=== PATIENT | male | born 1955 | race Caucasian/White ===

== ENCOUNTER 2020-11-05 15:23 | Emergency (ER) | payer OTHER, BC, SELFPAY ==
--- NOTE | ~2020-11-05 | US_ITS ---
EXAMINATION: US RIGHT GROIN, LIMITED/FOLLOW UP CLINICAL INFORMATION: Pain after lifting with lesion of right groin hernia COMPARISON: None TECHNIQUE: Linear transducer was used for evaluation of the right inguinal region. FINDINGS: Appearances are normal. No hernia is seen. No abnormal fluid collections or masses are seen. The common femoral artery and common femoral vein appear unremarkable. US/US pelvic limited IMPRESSION: No evidence of a right groin hernia
--- NOTE | ~2020-11-05 | US_ITS ---
EXAMINATION: US SCROTUM CLINICAL INFORMATION: Right scrotal pain after lifting. COMPARISON: None TECHNIQUE: A sonogram of the scrotum was performed assessing veronica-scale appearance and color Doppler flow. Spectral Doppler analysis of the arterial and venous flow were performed in the testes bilaterally. FINDINGS: RIGHT: Right testicle measures 3.6 x 2.1 x 2.9 cm, volume 11.5 mL. No focal testicular parenchymal lesions are visualized. Spectral Doppler analysis of the arterial and venous flow is normal in the right testis. Right epididymal head is normal in size. 2 small 2 to 3 mm-sized epididymal cysts are present. No varicocele is seen. A small right hydrocele is seen. Right epididymal Doppler flow is normal. LEFT: Left testicle measures 3.9 x 2.2 x 2.8 cm, volume 12.1 mL. No focal testicular parenchymal lesions are visualized. Spectral Doppler analysis of the arterial and venous flow is normal in the left testis. Left epididymal head is normal in size. A small left varicocele is seen. A small left hydrocele is present. Left epididymal Doppler flow is normal. US/US scrotum doppler IMPRESSION: No evidence of testicular torsion. Incidental findings as described.
[2020-11-05 17:26] VITALS: BP 145/91; PULSE 54; RESP 16; TEMP 36.9; O2SAT 100; BMI 26.4
--- NOTE | 2020-11-05 17:44 | ED_ITS ---
HPI - Male Genitourinary General Chief complaint: Urogenital-Male Stated complaint: groin pain - injury Time Seen by Provider: 11/05/20 17:32 Source: patient Mode of arrival: ambulatory History of Present Illness HPI Narrative: 64-year-old male with a past medical history of gout, hyperlipidemia, ED, presenting to the ED complaining groin pain greater on the right side radiating to right testicle s/p lifting 120lb of heavy boxes at work around 11:00 a.m. Denies urinary incontinence/retention, hesitancy, hematuria, flank pain, new or worsening back pain, radiation of pain down legs, numbness/tingling, direct trauma, testicular swelling/erythema/discoloration MD Complaint: testicle pain Related Data Previous Rx's Medication Instructions Recorded amoxicillin 500 mg-potassium 1 tab PO BID #14 tab 07/12/20 clavulanate 125 mg tablet (Augmentin) sildenafil 50 mg tablet (Viagra) 50 mg PO DAILY PRN #10 tab 07/12/20 acetaminophen 500 mg tablet 500 mg PO Q6H PRN #20 tab 11/05/20 (Tylenol Extra Strength) cyclobenzaprine 5 mg tablet 5 mg PO Q8H PRN 5 Days #14 tab 11/05/20 naproxen 500 mg tablet 500 mg PO BID PRN 10 Days #20 tab 11/05/20 Allergies Allergy/AdvReac Type Severity Reaction Status Date / Time No Known Allergies Allergy Mild NONE Unverified 12/15/19 16:09 Review of Systems Review of Systems: Constitutional: No Fever, No Chills Cardiovascular: No Chest Pain, No SOB Respiratory: No Cough, No Sputum, No Wheezing Gastrointestinal: No Nausea, No Vomiting, No Abdominal pain Genitourinary: + right testicular pain, +groin pain No Dysuria, No Urinary Frequency, No Hematuria, No Urinary Incontinence, No Urgency, No Flank Pain Musculoskeletal: + chronic back pain, No Myalgias, No Joint Swelling Skin: No Skin Lesions, No rash Neuro: No Weakness, No Numbness, No Paresthesias Yes all other systems are reviewed and are negative [facility] Past Medical History Attestation statement: The following information was validated with the patient. Medical History (Updated 11/05/20 @ 19:23 by MURPHY Bo) Erectile dysfunction Gout Hypercholesterolemia Surgical History (Updated 07/12/20 @ 14:29 by Tani Menchaca MD) Low back pain Family History Family History (Updated 07/12/20 @ 14:31 by Tani Menchaca MD) Mother No problems noted. Father Cancer Gastric cancer Sister No problems noted. Brother No problems noted. Paternal Grandfather Myocardial infarct Social History Social History (Updated 07/12/20 @ 14:32 by Tani Menchaca MD) Alcohol intake: never Years Smoked: 2004 Advance Directives: No Advance Directives Information Provided: No Physical Exam Vital Signs: Vital Signs: Last Vital Signs Temp 98.4 F 11/05/20 17:26 Pulse 54 11/05/20 17:26 Resp 16 11/05/20 17:26 BP 145/91 H 11/05/20 17:26 Pulse Ox 100 11/05/20 17:26 Body Mass Index 26.4 Const: General: cooperative and healthy appearing Orientation/consciousness: patient oriented x3 Limitations: no limitations HENMT: Head: Yes normal to inspection Ears: hearing grossly normal bilaterally General nose exam: Normal external nose present Face and sinus: Yes normal facial exam Eyes: General: appearance normal, both eyes and all related structures EOM: EOMs intact bilaterally Neck: Neck: Yes normal visual inspection Resp: Effort & Inspection: normal respiratory effort and no respiratory distress Cardio: Rate: regular rate GI: Inspection: Yes normal to inspection Palpation (GI): Soft to palpation, Tenderness to palpation present (GI) (Right suprapubic region/right groin), no guarding and not rigid : Penis: normal penis and uncircumcised Scrotum: no inguinal hernias and no scrotal swelling Testes: no testicular mass, no testicular swelling and testicular tenderness on the right Back/Spine/Pelvis: Other: No midline thoracic/lumbar spinous/step-offs Skin: Rashes: no rashes Wounds: no wounds Neuro: General: patient oriented x3 Gait exam (Neuro): Normal gait present Extrem: General: Yes normal to inspection Course Course Course Narrative: -UA negative -US pelvic limited IMPRESSION: No evidence of a right groin hernia? US scrotum doppler IMPRESSION: No evidence of testicular torsion. Incidental findings as described. >> results discussed with patient including worrisome signs and symptoms and strict return precautions, he verbalized understanding & feels safe for discharge home to follow-up with PCP MDM - Male Genitourinary MDM Narrative Medical decision making narrative: 64-year-old male with a past medical history of gout, hyperlipidemia, ED, presenting to the ED complaining groin pain greater on the right side radiating to right testicle s/p lifting 120lb of heavy boxes at work around 11:00 a.m. on exam vital signs stable, NAD, physical exam as above, right groin/suprapubic tenderness elicited on exam with right testicular tenderness. Concern for hernia vs torsion vs MSK pain/strain. Plan: Ultrasound Medical Records Attestation: I reviewed the patient's medical records. Lab Data Attestation: I reviewed the patient's lab results. Labs: Lab Results 11/05/20 Range/Units 17:33 Urine Color YELLOW Urine Appearance CLEAR Urine pH 7.5 (5.0-8.0) Ur Specific [place] 1.010 (1.005-1.025) Urine Protein NEG (NEG-TRACE) MG/DL Urine Glucose (UA) NEG (NEG) MG/DL Urine Ketones NEG (NEG) MG/DL Urine Blood NEG (NEG) Urine Nitrite NEG (NEG) Ur Leukocyte Esterase NEG (NEG) Discharge Plan Discharge Clinical Impression: Right groin pain Patient Disposition: Home, Self-Care Instructions: Groin Pain (ED) Additional Instructions: Your ultrasound did not show any evidence of a hernia It is important for you to follow-up with her doctor Your pain is likely musculoskeletal Flexeril is a muscle relaxer, take at night as it makes you drowsy, do not drive, drink alcohol, or operate machinery while taking it Naproxen as an anti-inflammatory / pain medication, take with food In addition take Tylenol at home If symptoms persist or worsen, you develop swelling or discoloration your testicle, difficulty your inability to urinate, back pain, pain becomes unbearable, you developed urinary retention or incontinence, or weakness return to the ED Prescriptions: New acetaminophen [Tylenol Extra Strength] 500 mg tablet 500 mg PO Q6H PRN (Reason: pain or fever) Qty: 20 RF: 0 naproxen 500 mg tablet 500 mg PO BID PRN (Reason: pain) 10 Days Qty: 20 RF: 0 cyclobenzaprine 5 mg tablet 5 mg PO Q8H PRN (Reason: pain (scale score 7-10)) 5 Days Qty: 14 RF: 0 No Action sildenafil [Viagra] 50 mg tablet 50 mg PO DAILY PRN (Reason: sexual activity) Qty: 10 RF: 3 amoxicillin-pot clavulanate [Augmentin] 500-125 mg tablet 1 tab PO BID Qty: 14 RF: 0 Referrals: Po,Tani Ruiz MD [Primary Care Provider] - 2 days Interventions: ED Discharge Assessment Last Done: 11/05/20 19:27 Discharge Date/Time: 11/05/20 19:28
[2020-11-05 18:06] LABS: Glucose Urine UA NEG (NEG); Leukocyte Esterase Urine NEG (NEG); Nitrite Urine NEG (NEG); PH 7.5 (5.0-8.0); Urine Blood NEG (NEG); Urine Ketones NEG (NEG); Urine Protein NEG (NEG-TRACE)
[2020-11-05 18:12] LABS: Appearance Urine CLEAR; Color Urine YELLOW
== END 2020-11-05 19:28 | disposition home or self-care (01) ==
PROVIDERS: Physician Assistant; Emergency Provider Emergency Medicine Emergency Medical Services; PCP Internal Medicine
DX: N50.812 Left testicular pain (principal); R10.31 Right lower quadrant pain; N50.811 Right testicular pain; Z79.899 Other long term (current) drug therapy
CPT/HCPCS: 76857; 81003; 93975; 99282; 99284

== ENCOUNTER → 2020-12-12 10:27 | Outpatient (BNVA) | payer OTHER, SELFPAY | PROVIDERS: PCP Internal Medicine; Referring Provider Internal Medicine; Visit Provider Surgery ==

== ENCOUNTER 2021-01-01 08:04 | Day surgery (SDC) | payer OTHER, SELFPAY ==
[2020-12-26 14:14] VITALS: BMI 27.6
--- NOTE | 2020-12-31 09:38 | HO.ANESPROP2 ---
Documented by User: Radha Ng NP 12/31/20 09:38 HPI - Anesthesia Eval Consult details Narrative: 65yo M for Right Hernia Repair Inguinal with Mesh PMFSH Active Problems Active Problems: All Active Problems (Updated 12/26/20 @ 13:10 by Sheela Hardwick RN) Colon cancer screening (Acute) Impaired glucose tolerance (Acute) Laceration of hand (Acute) Blood pressure elevated without history of HTN (Acute) Inguinal hernia of right side without obstruction or gangrene (Acute) Erectile dysfunction (Acute) Hypercholesterolemia (Acute) Past Medical History Medical History COVID-19 vaccine series completed Erectile dysfunction Gout Hypercholesterolemia Family History Family History Mother No problems noted. Father Cancer Gastric cancer Sister No problems noted. Brother No problems noted. Paternal Grandfather Myocardial infarct Surgical History Surgical History H/O colonoscopy Low back pain Social History Social History Housing: House Alcohol intake: never Patient Tobacco Use Status: Former Tobacco user Quit Date: 2004 Tobacco use type: Cigarette Years Smoked: 2004 Advance Directives Information Provided: No (as above noted) Advance Directives on File: No Current occupational status: employed Meds Allergies Allergy/AdvReac Type Severity Reaction Status Date / Time No Known Allergies Allergy Mild NONE Verified 01/01/21 08:29 Exam Exam Date and Time: December 31, 2020 0938 Height,Weight and Vital Signs: Height 6 ft 1 in Weight 94.801 kg Assessment and Plan Assessment Anesthesia Assessment: Chart Reviewed Documented by User: Kristine Rocha MD 01/01/21 09:56 PMFSH Past Medical History Medical History COVID-19 vaccine series completed Erectile dysfunction Gout Hypercholesterolemia Family History Family History Mother No problems noted. Father Cancer Gastric cancer Sister No problems noted. Brother No problems noted. Paternal Grandfather Myocardial infarct Family history of problems with anesthesia: No Surgical History Surgical History H/O colonoscopy Low back pain History of Problems with Anesthesia: No Social History Social History Housing: House Alcohol intake: never Patient Tobacco Use Status: Former Tobacco user Quit Date: 2004 Tobacco use type: Cigarette Years Smoked: 2004 Advance Directives Information Provided: No (as above noted) Advance Directives on File: No Current occupational status: employed Meds Allergies Allergy/AdvReac Type Severity Reaction Status Date / Time No Known Allergies Allergy Mild NONE Verified 01/01/21 08:29 Exam Height,Weight and Vital Signs: Height 6 ft 1 in Weight 94.801 kg Vital Signs Temp Pulse Resp BP Pulse Ox 01/01/21 08:27 97.8 F 64 16 118/80 97 Airway Mallampati Class: II TM Dist: >3cm Neck ROM: Full Loose/Missing/Broken Teeth: No Heart: RRR Lungs: CTAB Assessment and Plan Final Anesthetic Review Family History of Problems with Anesthesia: No History of Problems with Anesthesia: No NPO: Yes ASA Class: II Final Preanesthetic Review: No Changes in Pt Med Stat, Meds/Allgs Chart Reviewed, Consent Obtained/Reviewed and Anes Risks/Benef Reviewed Patient Risk: Low Procedure Risk: Low Assessment/Block/Sedation in SS: Assess/Block/Sedation-SS Anesthetic Plan Anesthetic Plan: GA Disposition: Standard PACU
[2021-01-01] VITALS (11 sets, daily range): BP systolic 118–143; BP diastolic 80–95; PULSE 60–72; RESP 14–16; TEMP 36.2–36.6; O2SAT 95–98
[2021-01-01] MEDS: Lactated Ringers 1,000 ML 100 ML IVCONT (08:46)
--- NOTE | 2021-01-01 09:40 | MHC.SHP ---
Pre-Procedural Eval Section A Date of Service: 01/01/21 Section B Chief Complaint: Inguinal hernia of right side without obstruction Allergies: Allergies Allergy/AdvReac Type Severity Reaction Status Date / Time No Known Allergies Allergy Mild NONE Verified 01/01/21 08:29 Plan I have reviewed the history and physical and performed a pertinent physical examination on my patient. No changes have occurred unless specified.
--- NOTE | 2021-01-01 11:05 | P.OP_ITS ---
Operative Note Operative Note Date of Service: 01/01/21 Narrative: Preop diagnosis: Right inguinal hernia Postop diagnosis: Right inguinal hernia, indirect Procedure: Repair of right inguinal hernia with mesh Surgeon: Joe Chavira MD 1st assistant financial accountant: MURPHY Harrison The patient this is 5-year-old male with note of reducible mass on the right groin consistent with a right inguinal hernia. He wanted to proceed with repair. He understood the technique of repair with mesh. He is aware of the risks, benefits, and alternatives. He was brought to the operating room and placed supine on the table under general anesthesia via laryngeal mask airway. The right groin was prepped and draped in the usual sterile fashion. A surgical time-out was done. The patient received cefazolin 2 g IV preoperatively. I infiltrated the planned line of incision with lidocaine 1%. I made the short incision using blade 15. This was carried down through the full-thickness of the skin and subcutaneous fat to the fascia. The external oblique aponeurosis was then exposed with blunt dissection. By doing so was able to visualize the external ring. I made incision on the external oblique aponeurosis using blade 15. And this was extended inferomedially to connect with the external ring. I applied hemostats to the edges of the external oblique aponeurosis. I bluntly dissected the underside of the aponeurosis to create a pocket for mesh. I then proceeded to bluntly dissect the spermatic cord and its contents using my index finger until was able to pass a Vickie drain for retraction. I proceeded to identify the vas deferens and its accompanying vessels. I examined the rest of the spermatic cord and I was able to identify a sac at the anterior medial aspect. I bluntly dissected the sac off of the rest of the cord contents down to the level of the internal ring until was able to completely reduce this. I reinforced the internal ring with the small-sized Prolene plug. The plug was secured with Prolene 2 sutures to the shelving edge of the inguinal and laterally, the internal oblique superiorly and medially to the inner leaves of the plug. I then reinforced the floor of the canal with a keyhole mesh. The tails of the mesh were passed around the cord at the level of the internal ring and were secured together with Prolene 2 sutures. I secured the mesh to the shelving edge of the inguinal ligament laterally and the internal oblique superiorly medially as well as the pubic ramus inferomedially using Prolene 2 sutures as well. I irrigated and suctioned out the irrigant fluid. I observed for hemostasis. Once hemostasis was ensured, I proceeded to close the external oblique aponeurosis with arunning Dexon 2-0 stitch to re-create the external ring. I reapposed the subcutaneous layer with Dexon 3-0 interrupted sutures. Skin closure was achieved with Dexon 4-0 subcuticular running stitch. I infiltrated the area with Marcaine 0.5% for postop analgesia. Steri-Strips and dressings were applied. The procedure was then completed. The patient tolerated procedure well. There were no complication noted. Initial and final counts of sponges and instruments were correct. Estimated blood loss was about for cc. The patient wasextubated without difficulty and transferred to the recovery room with stable vital signs.
--- NOTE | 2021-01-01 11:11 | PM.OP ---
Brief Operative Note Date of Service: 01/01/21 Pre-op diagnosis: Right inguinal hernia Post-op diagnosis: same Procedure: Repair of right inguinal hernia with mesh Implants: Mesh Surgeon: Joe Chavira MD Anesthesia: GLMA Was an Cutter Woodwind Reeds used for this Procedure?: Yes Cutter Woodwind Reeds: Karin Harrison Estimated blood loss (mL): 4 Pathology: none sent Condition: stable Disposition: PACU
[2021-01-01] MEDS: Acetaminophen 325 MG TABLET 650 MG PO (11:36)
[2021-01-01] MEDS: Ketorolac Tromethamine 15 MG/ML VIAL IVPUSH (11:36)
[2021-01-01] MEDS: oxyCODONE HCl Immed Release 5 MG TABLET PO (11:36)
[2021-01-01] MEDS: fentaNYL citrate/PF 100 MCG/2 ML VIAL 25 MCG IVPUSH ×2 (11:37→11:42)
== END 2021-01-01 13:34 | disposition home or self-care (01) ==
PROVIDERS: PCP Internal Medicine; Visit Provider Surgery
PROC: (CPT 49505; principal; 2021-01-01 09:50)
DX: K40.90 Unilateral inguinal hernia, without obstruction or gangrene, not specified as recurrent (principal)
CPT/HCPCS: 49505; C1781; J0690; J1100; J1885; J2250; J2405; J3010

== ENCOUNTER → 2021-01-14 13:34 | Outpatient (BNVA) | payer OTHER, SELFPAY | PROVIDERS: PCP Internal Medicine; Visit Provider Surgery | DX: Z48.815 Encounter for surgical aftercare following surgery on the digestive system (principal); Z87.19 Personal history of other diseases of the digestive system | CPT/HCPCS: 99212 ==

== ENCOUNTER 2021-08-14 08:50 | Day surgery (SDC) | payer BC, SELFPAY ==
[2021-08-09 13:28] VITALS: BMI 28.3
--- NOTE | 2021-08-13 10:28 | HO.ANESPROP2 ---
Documented by User: Radha Ng NP 08/13/21 10:29 HPI - Anesthesia Eval Consult details Narrative: 65yo M for Colonoscopy PMFSH Active Problems Active Problems: All Active Problems (Updated 08/09/21 @ 13:27 by Tiffanie Kimball, MARIA ELENA) Colon cancer screening (Acute) Impaired glucose tolerance (Acute) Laceration of hand (Acute) Blood pressure elevated without history of HTN (Acute) Inguinal hernia of right side without obstruction or gangrene (Acute) Annual physical exam (Acute) History of inguinal hernia repair (Acute) Erectile dysfunction (Acute) Hypercholesterolemia (Acute) Past Medical History Medical History Arthritis COVID-19 vaccine series completed Erectile dysfunction Gout Hypercholesterolemia Family History Family History Mother No problems noted. Father Cancer Gastric cancer Sister No problems noted. Brother No problems noted. Paternal Grandfather Myocardial infarct Family history of problems with anesthesia: No Surgical History Surgical History (Updated 08/14/21 @ 10:24 by Kristine Rocha MD) Amputation finger H/O colonoscopy History of right inguinal hernia repair Low back pain History of Problems with Anesthesia: No Social History Social History Housing: House Alcohol intake: never Patient Tobacco Use Status: Former Tobacco user Quit Date: 13 years ago Tobacco use type: Cigarette Years Smoked: 2004 e-Cigarette/Vaping Use: Never Used Second Hand Smoke Exposure: No Are you DNR?: No Advance Directives: No Advance Directives Information Provided: Yes Current occupational status: employed Meds Allergies Allergy/AdvReac Type Severity Reaction Status Date / Time No Known Allergies Allergy Mild NONE Verified 08/09/21 13:27 Exam Exam Date and Time: August 13, 2021 1028 Height,Weight and Vital Signs: Height 6 ft 2 in Weight 100.244 kg Assessment and Plan Assessment Anesthesia Assessment: Chart Reviewed Final Anesthetic Review Family History of Problems with Anesthesia: No History of Problems with Anesthesia: No Documented by User: Kristine Rocha MD 08/14/21 10:28 [facility] Active Problems Active Problems: All Active Problems (Updated 08/09/21 @ 13:27 by Tiffanie Kimball, RN) Colon cancer screening (Acute) Impaired glucose tolerance (Acute) Laceration of hand (Acute) Blood pressure elevated without history of HTN (Acute) History of inguinal hernia repair (Acute) Erectile dysfunction. No sildenafil recently Hypercholesterolemia (Acute) Past Medical History Medical History Arthritis COVID-19 vaccine series completed Erectile dysfunction Gout Hypercholesterolemia Family History Family History Mother No problems noted. Father Cancer Gastric cancer Sister No problems noted. Brother No problems noted. Paternal Grandfather Myocardial infarct Surgical History Surgical History (Updated 08/14/21 @ 10:24 by Kristine Rocha MD) Amputation finger H/O colonoscopy History of right inguinal hernia repair Low back pain Social History Social History Housing: House Alcohol intake: never Patient Tobacco Use Status: Former Tobacco user Quit Date: 13 years ago Tobacco use type: Cigarette Years Smoked: 2004 e-Cigarette/Vaping Use: Never Used Second Hand Smoke Exposure: No Are you DNR?: No Advance Directives: No Advance Directives Information Provided: Yes Current occupational status: employed Meds Allergies Allergy/AdvReac Type Severity Reaction Status Date / Time No Known Allergies Allergy Mild NONE Verified 08/09/21 13:27 Exam Height,Weight and Vital Signs: Height 6 ft 2 in Weight 100.244 kg Vital Signs Temp Pulse Resp BP Pulse Ox 08/14/21 09:24 97.1 F 55 16 126/80 99 Airway Mallampati Class: II TM Dist: >3cm Neck ROM: Full Heart: RRR Lungs: CTAB Assessment and Plan Final Anesthetic Review NPO: Yes ASA Class: II Final Preanesthetic Review: No Changes in Pt Med Stat, Meds/Allgs Chart Reviewed, Consent Obtained/Reviewed and Anes Risks/Benef Reviewed Patient Risk: Low Procedure Risk: Low Assessment/Block/Sedation in SS: Assess/Block/Sedation-SS Anesthetic Plan Anesthetic Plan: MAC: Disposition: Standard PACU
[2021-08-14 09:24] VITALS: BP 126/80; PULSE 55; RESP 16; TEMP 36.2; O2SAT 99; BMI 26.9
[2021-08-14] MEDS: Lactated Ringers 1,000 ML 100 ML IVCONT (09:30)
--- NOTE | 2021-08-14 11:17 | P.BOP_ITS ---
Brief Operative Note Date of Service: 08/14/21 Pre-op diagnosis: Screening Post-op diagnosis: other (Colon polyp) Procedure: Colonoscopy to the cecum and TI with cold snare polypectomy x 1 Surgeon: Jose Duggan Anesthesia: MAC Was an Customer Acquisition Manager used for this Procedure?: No Estimated blood loss (mL): 2.0 Pathology: other (A. Polyp at 30cm) Condition: stable Disposition: PACU
[2021-08-14 11:19] VITALS: BP 128/88; PULSE 69; RESP 16; TEMP 36.1; O2SAT 97
[2021-08-14 11:34] VITALS: BP 130/86; PULSE 54; RESP 16; TEMP 36.3; O2SAT 98
--- NOTE | 2021-08-14 22:39 | OP_ITS ---
SURGEON: Jose Duggan MD INDICATIONS: The patient presents for evaluation of colorectal cancer screening. Full consent was obtained from him for this, including risks of bleeding and perforation. PREOPERATIVE DIAGNOSIS: Colorectal cancer screening. POSTOPERATIVE DIAGNOSIS: PROCEDURE PERFORMED: Colonoscopy to the cecum and terminal ileum with cold snare polypectomy. ESTIMATED BLOOD LOSS: COMPLICATIONS: ANESTHESIA: ASSISTANTS: SPECIMENS: PREOPERATIVE DIAGNOSIS: Monitored anesthesia care. DESCRIPTION OF PROCEDURE: The patient was placed in the left lateral decubitus position. The digital rectal exam revealed no abnormalities. The Olympus video pediatric colonoscope was entered into the rectum and advanced easily to the cecum. Once in the cecum, I did identify normal-appearing cecal pouch with appendiceal orifice, a normal-appearing ileocecal valve. The terminal ileum was cannulated and appeared normal. Scope was withdrawn back in the colon. The entire cecum and ileocecal valve appeared normal. The scope was slowly withdrawn assessing all mucosal surfaces carefully. Preparation was excellent. At 30 cm was an approximately 5 or 6 mm polyp, which was removed by cold snare polypectomy. This was recovered by suction. The polypectomy site appeared clean, without any sign of residual polyp nor any significant bleeding. I did not visualize any other polyps, colitis, nor angiodysplasia. There was a mild amount of sigmoid diverticulosis. In the rectum, scope was retroflexed visualizing internal hemorrhoids, but no other pathology. The rectal mucosa appeared normal. The scope was straightened and withdrawn from the patient. He tolerated the procedure well and was returned to the recovery area in stable condition. IMPRESSION: 1. Colon polyp, status post cold snare polypectomy. 2. Diverticulosis. 3. Internal hemorrhoids. PLAN: The results of the pathology will be checked. If this is a tubular adenoma, I would recommend a followup colonoscopy in 5 years. If it is only hyperplastic, I would recommend a followup colonoscopy in 10 years. He will otherwise see me on a p.r.n. basis. He was advised not to use any aspirin and NSAIDs for 1 week. POSTOPERATIVE DIAGNOSES: Colorectal cancer screening, colon polyp, diverticulosis and internal hemorrhoids. MD MARCIE Shearer/BHAVANI / [id number]
== END 2021-08-14 12:30 | disposition home or self-care (01) ==
PROVIDERS: PCP Internal Medicine; Visit Provider Internal Medicine
PROC: 0DJD8ZZ Inspection of Lower Intestinal Tract, Via Natural or Artificial Opening Endoscopic (ICD-10-PCS; CPT 45378; principal; 2021-08-14 09:30)
DX: Z12.11 Encounter for screening for malignant neoplasm of colon (principal); D12.5 Benign neoplasm of sigmoid colon; K57.30 Diverticulosis of large intestine without perforation or abscess without bleeding; K64.8 Other hemorrhoids
CPT/HCPCS: 45385; 88305

== ENCOUNTER 2022-12-30 10:11 | Outpatient (AMB) | payer OTHER, BC, SELFPAY ==
[2022-12-30 10:16] VITALS: BP 126/78; PULSE 67; O2SAT 98; BMI 27.0
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
== END 2022-12-30 10:58 | disposition home or self-care (01) ==
PROVIDERS: PCP Internal Medicine; Visit Provider Nurse Practitioner Family
DX: M54.50 Low back pain, unspecified (principal); S16.1XXA Strain of muscle, fascia and tendon at neck level, initial encounter; R51.9 Headache, unspecified
CPT/HCPCS: 99214

== ENCOUNTER 2023-01-22 15:20 | Outpatient (REF) | payer BC, OTHER, SELFPAY ==
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
== END 2023-01-22 15:21 | disposition home or self-care (01) ==
LOC: HO.XRAY 15:20
PROVIDERS: PCP Internal Medicine; Visit Provider Nurse Practitioner Family
DX: S16.1XXA Strain of muscle, fascia and tendon at neck level, initial encounter (principal); M54.50 Low back pain, unspecified
CPT/HCPCS: 72040; 72100

== ENCOUNTER 2023-02-03 08:47 | Outpatient (AMB) | payer BC, SELFPAY ==
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
[2023-02-03 08:55] VITALS: BP 154/82; PULSE 80; O2SAT 98; BMI 27.2
== END 2023-02-03 09:48 | disposition home or self-care (01) ==
PROVIDERS: Visit Provider Internal Medicine
DX: Z00.00 Encounter for general adult medical examination without abnormal findings (principal); I70.0 Atherosclerosis of aorta; R73.02 Impaired glucose tolerance (oral); R03.0 Elevated blood-pressure reading, without diagnosis of hypertension; E78.00 Pure hypercholesterolemia, unspecified; Z23 Encounter for immunization
CPT/HCPCS: 90471; 90677; 99397

== ENCOUNTER 2023-03-03 06:39 | Outpatient (REF) | payer BC, SELFPAY ==
[2023-03-03 06:50] LABS: MANUAL DIFF FLAG NO
[2023-03-03 07:29] LABS: Basophils Absolute Auto 0.1 X10*3/uL (0.0-0.2); Eosinophils Absolute Auto 0.2 X10*3/uL (0.0-0.4); Eosinophils Percent Auto 3.5 % (0-4); Hematocrit 48.8 % (42.0-52.0); Hemoglobin 16.2 g/dl (14.0-18.0); Imm Gran Abs Auto 0.02 X10*3/uL (0.00-0.03); Imm Gran Pct Auto 0.3 % (0.0-0.4); Lymphocytes Absolute Auto 2.3 X10*3/uL (1.2-4.9); Lymphocytes Percent Auto 37.3 % (20-40); Mean Corpuscular HGB Conc 33.2 g/dl (31.0-36.0); Mean Corpuscular Hemoglobin 31.8 pg (27.0-33.0); Mean Corpuscular Volume 95.7 fL (80.0-98.0); Mean Platelet Volume 9.9 fL (9.4-12.4); Monocytes Absolute Auto 0.5 X10*3/uL (0.1-1.2); Monocytes Percent Auto 7.6 % (2-11); Neutrophils Absolute Auto 3.1 x10*3/uL (2.0-8.3); Neutrophils Percent Auto 50.3 % (45-73); Platelet Count 272 X10*3/uL (160-400); Red Cell Distribution Width 12.7 % (11.0-16.0); White Blood Count 6.2 X10*3/uL (4.8-10.8)
[2023-03-03 07:41] LABS: Estimated Average Glucose 114 mg/dL; Hemoglobin A1c % 5.6 % (<6.0)
[2023-03-03 07:53] LABS: Alanine Aminotransferase 24 U/L (0-40); Albumin Level 4.3 g/dL (3.5-5.0); Alkaline Phosphatase 50 U/L (39-117); Anion Gap 12 (12-20); Aspartate Amino Transferase 18 U/L (5-37); Bilirubin Total 0.4 mg/dL (0.0-1.0); Blood Urea Nitrogen 14 mg/dL (9-16); Carbon Dioxide 27 mmol/L (22-29); Chloride 107 mmol/L (96-108); Cholesterol 191 mg/dL (<200); Estimated Glomerular Filt Rate > 60; Glucose Random 107 mg/dL (60-115); HDL Cholesterol 48 mg/dL (>40); LDL Cholesterol Calculated 124 mg/dL (<100); Potassium 4.3 mmol/L (3.3-5.1); Sodium 142 mmol/L (135-145); Total Protein 7.4 g/dL (6.5-8.0); Triglycerides 95 mg/dL (<150)
[2023-03-03 08:09] LABS: Thyroid Stimulating Hormone 0.97 uIU/mL (0.32-4.0)
[2023-03-03 08:21] LABS: Folate 10.7 ng/mL (> or = 4.0); Prostate Specific Antigen Scr 0.99 ng/mL (<0.05-4.0); Vitamin B12 394 pg/mL (200-900)
== END 2023-03-03 06:40 | disposition home or self-care (01) ==
LOC: HO.LAB 06:39
PROVIDERS: PCP Internal Medicine; Visit Provider Internal Medicine
DX: Z12.5 Encounter for screening for malignant neoplasm of prostate (principal); R73.02 Impaired glucose tolerance (oral); E78.00 Pure hypercholesterolemia, unspecified
CPT/HCPCS: 36415; 80053; 80061; 82607; 82746; 83036; 84153; 84439; 84443; 85025

== ENCOUNTER 2023-03-17 08:20 | Outpatient (REF) | payer BC, SELFPAY ==
--- NOTE | ~2023-03-17 | CT_ITS ---
EXAMINATION: CT ANGIOGRAM ABDOMEN AND PELVIS CLINICAL INFORMATION: Atherosclerosis of aorta COMPARISON: None available. TECHNIQUE: Multiple axial images were obtained through the abdomen and pelvis following the administration of 100 mL of Omnipaque 350 intravenous contrast. Images were reviewed on a dedicated 3-D workstation. This CT examination was performed using dose optimization techniques as appropriate, variously including the following: *Automated exposure control *Adjustment of mA and/or kV according to patient size (this includes techniques or standardized protocols for targeted exams where dose is matched to indication/reason for exam; i.e. extremities or head) *Use of iterative reconstruction technique DLP: 299 mGy-cm FINDINGS: LOWER LUNGS: Bibasilar atelectasis. LIVER, GALLBLADDER, AND BILIARY TREE: The liver is normal in size and shape. Decreased hepatic attenuation suggesting hepatic steatosis. No focal hepatic lesion or biliary ductal dilatation is present. The gallbladder is unremarkable with no evidence of radiopaque gallstones, gallbladder wall thickening, or obvious pericholecystic inflammatory changes. PANCREAS: Unremarkable. SPLEEN: Unremarkable. ADRENAL GLANDS: Unremarkable. KIDNEYS AND URETERS: Nonobstructive right renal calculus in the lower pole measuring 2 mm without hydronephrosis. No left-sided nephrolithiasis or hydronephrosis. BLADDER: Unremarkable. GASTROINTESTINAL TRACT: The small and large bowel are unremarkable. The appendix is unremarkable. ABDOMINAL WALL: No significant hernia is appreciated. LYMPH NODES: Normal. VASCULAR: Abdominal aorta is nonaneurysmal and demonstrates atherosclerotic calcifications. Patency of the celiac, superior mesenteric and inferior mesenteric arteries. 2 right-sided renal arteries 3 left-sided renal arteries with each mid to branch supplying the upper pole. Prominence of the left common iliac artery measuring up to 1.7 cm in the right common iliac artery measuring up to 1.5 cm. Atherosclerotic calcifications of the bilateral common iliac arteries. Atherosclerotic calcifications of the left internal iliac artery. Pelvic phleboliths are noted. PELVIC VISCERA: Prostate measures 6.5 cm. OSSEOUS STRUCTURES: Multilevel degenerative changes of the thoracolumbar and lumbosacral spine. Degenerative arthropathy of the bilateral femoral acetabular joints. CT/CT angio abdomen pelvis IMPRESSION: 1. Abdominal aorta is nonaneurysmal and demonstrates atherosclerotic calcifications. Patency of the celiac, superior mesenteric and inferior mesenteric arteries. 2. Prominence of the left common iliac artery measuring up to 1.7 cm in the right common iliac artery measuring up to 1.5 cm. 3. Decreased hepatic attenuation suggesting hepatic steatosis. 4. Nonobstructive right renal calculus in the lower pole measuring 2 mm without hydronephrosis. 5. Prostate measures 6.5 cm.
[2023-03-17] MEDS: iohexoL 350 MG/ML 100 ML INFUS..BTL IV (09:12)
== END 2023-03-17 08:21 | disposition home or self-care (01) ==
LOC: HO.CT 08:20
PROVIDERS: PCP Internal Medicine; Visit Provider Nurse Practitioner Family
DX: I70.0 Atherosclerosis of aorta (principal)
CPT/HCPCS: 74174; Q9967

== ENCOUNTER 2023-05-01 08:17 | Outpatient (AMB) | payer BC, SELFPAY ==
[2023-05-01 08:25] VITALS: BP 132/78; PULSE 79; O2SAT 98; BMI 27.2
--- NOTE | 2023-05-01 08:25 | MHC.PC.OV ---
Vital Signs 05/01/23 08:25 Height 6 ft 2 in Weight 212 lb BMI 27.2 BP 132/78 Blood Pressure Location Lt brachial Position Sitting Pulse 79 Pulse Source Pulse Oximeter Pulse Oximetry (%) 98 Oxygen Delivery Method Room Air Intake Visit Reasons: BLood pressure elevated, hypercholesterol Allergies No Known Allergies Allergy (Mild, Verified 05/01/23 08:26) NONE Tobacco use date assessed: 05/01/23 Fall risk assessment: No Falls in past year Last assessed Fall Risk: 05/01/23 Dental Screening Dental Screen Date: 05/01/23 Did you have a dental visit in the last 12 months?: Yes Did you have a dental problem in the last 6 months where you did not have access to dental care?: No Was dental information given to patient?: Patient has dentist HPI BLood pressure elevated, hypercholesterol HPI Details 67-year-old overweight male with a history of impaired glucose tolerance hypercholesterolemia and abdominal aortic atherosclerosis coming in for follow-up. Last seen in January 2023 noted at that time to have an elevated blood pressure is here for follow-up. Patient's colonoscopy up-to-date July 2021. Patient had a CT scan recently February 2023 showing hepatic steatosis right renal calculi 2 mm without blockage noted abdominal aorta atherosclerotic calcifications, prostate enlargement L multilevel thoracolumbar to lumbosacral spine degenerative changes PFSH Medical History (Updated 05/01/23 @ 08:49 by Tani Menchaca MD) Arthritis COVID-19 vaccine series completed Erectile dysfunction Gout Hypercholesterolemia Surgical History (Updated 12/30/22 @ 10:58 by NIKOLE Real) Amputation finger History of right inguinal hernia repair H/O colonoscopy Low back pain Family History (Updated 02/03/23 @ 09:19 by Tani Menchaca MD) Mother No problems noted. Father Cancer Gastric cancer Sister Heart problem Brother No problems noted. Paternal Grandfather Myocardial infarct Social History Housing: House Alcohol intake: never Patient Tobacco Use Status: Former Tobacco user Quit Date: 13 years ago Tobacco use type: Cigarette Years Smoked: 2004 e-Cigarette/Vaping Use: Never Used Second Hand Smoke Exposure: No Current occupational status: employed Cognitive needs: No Hearing needs: No Vision needs: No Questionnaire PHQ-9 Over the last 2 weeks, how often have you been bothered by any of the following problems? 1. Little interest or pleasure in doing things: not at all 2. Feeling down, depressed, or hopeless: not at all 3. Trouble falling or staying asleep, or sleeping too much: not at all 4. Feeling tired or having little energy: not at all 5. Poor appetite or overeating: not at all 6. Feeling bad about yourself - or that you are a failure or have let yourself or your family down: not at all 7. Trouble concentrating on things, such as reading the newspaper or watching television: not at all 8. Moving or speaking so slowly that other people could have noticed. Or the opposite - being so fidgety or restless that you have been moving around a lot more than usual: not at all 9. Thoughts that you would be better off or of hurting yourself in some way: not at all Total score: 0 Depression Screening Interpretation: Negative Depression Screening Done: Yes Source: Developed by Drs. Jose Fleming, Susan Nicholas, Davin Barajas and colleagues, with an educational juan from [employer]. Thrive Questionnaire Date Thrive assessed: 05/01/23 I am a: Patient What is your living situation today?: I have a steady place to live Within the past 12 months, did the food you bought not last and you didn't have the money to get more?: Never true Within the past 12 months, did you worry whether your food would run out before you got money to buy more?: Never true Do you have trouble paying for medicines?: No Do you have trouble getting transportation to medical appointments?: No Do you have trouble paying your heating and electricity bill?: No Do you have trouble taking care of your child, family member or friend?: No Do you have trouble with day-to-day activities such as bathing, preparing meals, shopping, managing finances, etc.?: No Are you currently unemployed and looking for a job?: No Are you interested in more education?: No Currently or been in a relationship where the following occur: no concerns reported THRIVE Score: 0 AUDIT C Alcohol Use Questionnaire (AUDIT-C) 1. How often do you have a drink containing alcohol?: Never 2. How many drinks containing alcohol do you have on a typical day when you are drinking?: 1 or 2 (0) 3. How often do you have six or more drinks on one occasion?: Never Total Score: 0 JT-7 AMB Questionnaire JT-7 Date JT - 7 assessed: 05/01/23 Feeling nervous, anxious, or on edge: 0 = Not at all Not being able to stop or control worryin = Not at all Worrying too much about different things: 0 = Not at all Trouble relaxin = Not at all Being so restless that it is hard to sit still: 0 = Not at all Becoming easily annoyed or irritable: 0 = Not at all Feeling afraid as if something awful might happen: 0 = Not at all Total JT-7 score (0-4 normal; 5-9 mild; 10-14 moderate; 15-21 severe): 0 Source: Developed by Drs. Jose Fleming, Susan Nicholas, Davin Barajas and colleagues, with an educational juan from [employer]. Physical exam (Primary Care) Vital Signs: Last Vital Signs Pulse 79 05/01/23 08:25 BP 132/78 05/01/23 08:25 Pulse Ox 98 05/01/23 08:25 Oxygen Delivery Method Room Air 05/01/23 08:25 BMI result Body Mass Index 27.2 Tobacco/Smoking Status: Tobacco use Status Tobacco use date assessed 05/01/23 05/01/23 08:31 Patient Tobacco Use Status Former Tobacco user 05/01/23 08:31 Tobacco use type Cigarette 05/01/23 08:31 e-Cigarette/Vaping Use Never Used 05/01/23 08:31 PHQ-9: PHQ-9 Score PHQ-9: Total score 0 05/01/23 08:31 Depression Screening Interpretation: Negative Thrive Assessment: Date of Thrive Assessment Date Thrive assessed 05/01/23 05/01/23 08:31 Currently or been in a relationship where the following occur: no concerns reported Const General: alert; No acute distress Eyes Conjunctivae: conjunctivae normal Resp Auscultation: clear to auscultation bilaterally Cardio Rate: regular rate Rhythm: regular rhythm GI Inspection: Yes normal to inspection Extrem General: Yes normal to inspection and No edema Assessment and Plan Assessment & Plan (1) Renal calculus, right: Comment: Juan 2023Abdominal aorta is nonaneurysmal and demonstrates atherosclerotic calcifications. Patency of the celiac, superior mesenteric and inferior mesenteric arteries. 2. Prominence of the left common iliac artery measuring up to 1.7 cm in the right common iliac artery measuring up to 1.5 cm. 3. Decreased hepatic attenuation suggesting hepatic steatosis. 4. Nonobstructive right renal calculus in the lower pole measuring 2 mm without hydronephrosis. 5. Prostate measures 6.5 cm. Code(s): N20.0 - Calculus of kidney Plan: Keep well hydrated (2) Abdominal aortic atherosclerosis: Comment: December [address] Code(s): I70.0 - Atherosclerosis of aorta Plan: Control the cholesterol, weight, blood pressure (3) Impaired glucose tolerance: Code(s): R73.02 - Impaired glucose tolerance (oral) Plan: Decrease the amount of carbohydrate intake, pasta, bread, rice and potatoes are all sugar and that is aside from all the sweet stuff, remember that fruits are good but they are Sweet also. (4) Blood pressure elevated without history of HTN: Code(s): R03.0 - Elevated blood-pressure reading, without diagnosis of hypertension Plan: Blood pressure is good (5) Hypercholesterolemia: Code(s): E78.00 - Pure hypercholesterolemia, unspecified Plan: Avoid fried foods, chicken skin, eggs, butter margarine, pastries and meat. Be it pork or beef they have a lot of cholesterol LDL goal of less than 130 and triglyceride of less than 150. (6) BPH (benign prostatic hyperplasia): Code(s): N40.0 - Benign prostatic hyperplasia without lower urinary tract symptoms Plan: stable and monitor for now Coding Level of Care Code Est Pt Level 4 (71349) Diagnoses Renal calculus, right N20.0 Abdominal aortic atherosclerosis I70.0 Impaired glucose tolerance R73.02 Blood pressure elevated without history of HTN R03.0 Hypercholesterolemia E78.00 BPH (benign prostatic hyperplasia) N40.0
== END 2023-05-01 08:52 | disposition home or self-care (01) ==
PROVIDERS: PCP Internal Medicine; Visit Provider Internal Medicine
DX: N20.0 Calculus of kidney (principal); I70.0 Atherosclerosis of aorta; R73.02 Impaired glucose tolerance (oral); R03.0 Elevated blood-pressure reading, without diagnosis of hypertension; E78.00 Pure hypercholesterolemia, unspecified; N40.0 Benign prostatic hyperplasia without lower urinary tract symptoms
CPT/HCPCS: 99214

== ENCOUNTER 2024-02-08 10:05 | Outpatient (AMB) | payer BC, SELFPAY ==
[2024-02-08 10:15] VITALS: BP 118/66; PULSE 74; O2SAT 98; BMI 26.9
--- NOTE | 2024-02-08 10:15 | MHC.OFFVIS ---
Vital Signs 02/08/24 10:15 Height 6 ft 2 in Intake Visit Reasons: PE Allergies No Known Allergies Allergy (Mild, Verified 05/01/23 08:26) NONE PFSH Medical History (Updated 05/01/23 @ 08:49 by Tani Menchaca MD) Arthritis COVID-19 vaccine series completed Erectile dysfunction Gout Hypercholesterolemia Surgical History (Updated 12/30/22 @ 10:58 by NIKOLE Real) Amputation finger History of right inguinal hernia repair H/O colonoscopy Low back pain Family History (Updated 02/03/23 @ 09:19 by Tani Menchaca MD) Mother No problems noted. Father Cancer Gastric cancer Sister Heart problem Brother No problems noted. Paternal Grandfather Myocardial infarct Social History Housing: House Alcohol intake: never Patient Tobacco Use Status: Former Tobacco user Tobacco use type: Cigarette Years Smoked: 2004 e-Cigarette/Vaping Use: Never Used Second Hand Smoke Exposure: No Current occupational status: employed Cognitive needs: No Hearing needs: No Vision needs: No Coding
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
== END 2024-02-08 11:11 | disposition home or self-care (01) ==
PROVIDERS: PCP Internal Medicine; Visit Provider Internal Medicine
DX: Z00.00 Encounter for general adult medical examination without abnormal findings (principal); I70.0 Atherosclerosis of aorta; N20.0 Calculus of kidney; N40.0 Benign prostatic hyperplasia without lower urinary tract symptoms; E78.00 Pure hypercholesterolemia, unspecified; R73.02 Impaired glucose tolerance (oral); K76.0 Fatty (change of) liver, not elsewhere classified

== ENCOUNTER → 2024-02-08 10:05 | Outpatient (BNVA) | payer BC, SELFPAY | PROVIDERS: PCP Internal Medicine; Visit Provider Internal Medicine | DX: Z00.00 Encounter for general adult medical examination without abnormal findings (principal); I70.0 Atherosclerosis of aorta; N20.0 Calculus of kidney; N40.0 Benign prostatic hyperplasia without lower urinary tract symptoms; E78.00 Pure hypercholesterolemia, unspecified; R73.02 Impaired glucose tolerance (oral); K76.0 Fatty (change of) liver, not elsewhere classified | CPT/HCPCS: 96127 ==

== ENCOUNTER 2024-05-16 07:50 | Outpatient (REF) | payer BC, SELFPAY ==
[2024-05-16 08:02] LABS: MANUAL DIFF FLAG NO
[2024-05-16 08:51] LABS: Basophils Percent Auto 0.6 % (0-2); Eosinophils Absolute Auto 0.2 X10*3/uL (0.0-0.4); Hematocrit 46.8 % (42.0-52.0); Hemoglobin 15.8 g/dl (14.0-18.0); Imm Gran Abs Auto 0.01 X10*3/uL (0.00-0.03); Imm Gran Pct Auto 0.2 % (0.0-0.4); Lymphocytes Absolute Auto 2.4 X10*3/uL (1.2-4.9); Lymphocytes Percent Auto 38.5 % (20-40); Mean Corpuscular HGB Conc 33.8 g/dl (31.0-36.0); Mean Corpuscular Hemoglobin 31.9 pg (27.0-33.0); Mean Corpuscular Volume 94.4 fL (80.0-98.0); Mean Platelet Volume 9.7 fL (9.4-12.4); Monocytes Absolute Auto 0.5 X10*3/uL (0.1-1.2); Monocytes Percent Auto 8.5 % (2-11); Neutrophils Absolute Auto 3.1 x10*3/uL (2.0-8.3); Neutrophils Percent Auto 49.2 % (45-73); Platelet Count 270 X10*3/uL (160-400); Red Blood Count 4.96 X10*6/uL (4.60-5.80); Red Cell Distribution Width 12.5 % (11.0-16.0); White Blood Count 6.3 X10*3/uL (4.8-10.8)
[2024-05-16 09:04] LABS: Estimated Average Glucose 117 mg/dL; Hemoglobin A1c % 5.7 % (<6.0); Total Hemoglobin (HGBA1C) 4025.1238 umol/L
[2024-05-16 09:20] LABS: Alanine Aminotransferase 22 U/L (0-40); Albumin Level 4.4 g/dL (3.5-5.0); Alkaline Phosphatase 53 U/L (39-117); Anion Gap 13 (12-20); Aspartate Amino Transferase 21 U/L (5-37); Bilirubin Total 0.6 mg/dL (0.0-1.0); Blood Urea Nitrogen 15 mg/dL (9-16); Calcium 9.8 mg/dL (8.4-10.2); Carbon Dioxide 27 mmol/L (22-29); Chloride 106 mmol/L (96-108); Cholesterol 175 mg/dL (<200); Estimated Glomerular Filt Rate > 60; Glucose Random 88 mg/dL (60-115); HDL Cholesterol 50 mg/dL (>40); LDL Cholesterol Calculated 106 mg/dL (<100); Potassium 4.6 mmol/L (3.3-5.1); Sodium 141 mmol/L (135-145); Total Protein 7.7 g/dL (6.5-8.0); Triglycerides 96 mg/dL (<150)
[2024-05-16 09:41] LABS: Free T4 (Free Thyroxine) 0.93 ng/dL (0.71-1.85); Thyroid Stimulating Hormone 1.13 uIU/mL (0.32-4.0)
[2024-05-16 09:48] LABS: Folate 9.1 ng/mL (> or = 4.0); Prostate Specific Antigen Scr 1.33 ng/mL (<0.05-4.0); Vitamin B12 328 pg/mL (200-900)
== END 2024-05-16 07:51 | disposition home or self-care (01) ==
LOC: HO.LAB 07:50
PROVIDERS: PCP Internal Medicine; Visit Provider Internal Medicine
DX: E78.00 Pure hypercholesterolemia, unspecified (principal); R73.02 Impaired glucose tolerance (oral); Z12.5 Encounter for screening for malignant neoplasm of prostate
CPT/HCPCS: 36415; 80053; 80061; 82607; 82746; 83036; 84153; 84439; 84443; 85025

== ENCOUNTER 2025-02-08 11:29 | Outpatient (AMB) | payer BC, SELFPAY ==
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
[2025-02-08 11:52] VITALS: BP 132/80; PULSE 62; TEMP 36.3; O2SAT 92; BMI 26.8
--- OUTSIDE RECORDS SUMMARY | 2025-02-08 14:21 | XMS_ITS | Patient Health Record ---
Author Organization [facility] Address [address] [place] [address] Care Team Providers Care Manufacturing Lead Name Role Phone Po Tani BANDA Primary Care Provider Jose Wooten Unavailable [phone] Allergies No Known Allergies Reason For Referral No Information Immunizations Vaccine Route Administration Date Status Comme nts Influenza Unknown 07/16/2021 Refused Social History Tobacco Use: Social History Observation Description Date Details (start date - stop date) Never Smoker NA - NA Tobacco Use/Smoking Question Answer Notes Patient is a nonsmoker Alcohol Screen Question Answer Notes Did you have a drink containing alcohol in the p ast year? No Points 0 Interpretation Negative Section Notes: Nonsmoker; no sig alcohol Problems Problem Type SNOMED Code ICD Code Onset Dates Problem Status W/U Status Risk Notes Problem Screening for malignant neoplasm of colon (933460240) Encounter for screening for malignant neoplasm of colon (Z12.11) Active confirmed Problem Pre-procedure evaluation check (045616542) Pre-procedural examination (Z01.818) Active confirmed Problem Diverticulosis of colon (083555492) Diverticulosis of colon (K57.30) Active confirmed Plan Of Treatment Future Test Test Name Order Date COLONOSCOPY 07/16/2021 Insurance Providers Payer Name Payer Address Payer Phone Subscriber Number Group Number Insured Name Patient Relationship to Insured Coverage Start Date Coverage End Date [facility] [address] [place] [address] [phone] [id number] [employer] Self - patient is the insured Medical (General) History Medical History History ICD Code Describes a colonoscopy at age 50 with ? of removal of polyps Denies ID,DM,CVA,Lung disease,renal dise ase Arthritis Surgical History Surgery Date(Month/Year) Hernia repair-right inguinal-Dr. Rizwana latham Back surgery for herniated discs
== END 2025-02-08 12:34 | disposition home or self-care (01) ==
PROVIDERS: PCP Internal Medicine; Visit Provider Internal Medicine
DX: Z00.00 Encounter for general adult medical examination without abnormal findings (principal); N40.0 Benign prostatic hyperplasia without lower urinary tract symptoms; N20.0 Calculus of kidney; K76.0 Fatty (change of) liver, not elsewhere classified; R73.02 Impaired glucose tolerance (oral); E78.00 Pure hypercholesterolemia, unspecified; I70.0 Atherosclerosis of aorta; M25.552 Pain in left hip

== ENCOUNTER → 2025-02-08 11:29 | Outpatient (BNVA) | payer BC, SELFPAY | PROVIDERS: PCP Internal Medicine; Visit Provider Internal Medicine | DX: Z00.00 Encounter for general adult medical examination without abnormal findings (principal); N40.0 Benign prostatic hyperplasia without lower urinary tract symptoms; N20.0 Calculus of kidney; K76.0 Fatty (change of) liver, not elsewhere classified; R73.02 Impaired glucose tolerance (oral); E78.00 Pure hypercholesterolemia, unspecified; I70.0 Atherosclerosis of aorta; M16.12 Unilateral primary osteoarthritis, left hip; R13.10 Dysphagia, unspecified | CPT/HCPCS: 96127 ==